=== PATIENT | female | born 1990 | race Two or more races ===

== ENCOUNTER → 2018-01-08 | Outpatient (CLI) | payer SELFPAY ==
--- NOTE | 2018-01-08 15:39 | RADIOLOGY REPORT (SQ) ---
EXAM DESCRIPTION: U/S OB 14+ TRNABD 1GES W/O DOP COMPLETED DATE/TIME: 01/08/2018 3:29 pm REASON FOR STUDY: ENCOUNTER FOR SUPERVISION OF NORMAL , THIRD TRIMESTER Z34.93 ENCNTR FOR SUPRVSN OF NORMAL PREG, UNSP, THIRD TRIMES COMPARISON: None. TECHNIQUE: Static and Dynamic grayscale imaging performed of gravid uterus using transabdominal appr oach. Additional selected color Doppler and spectral images recorded. All stored on PACS. LIMITATIONS: None. FINDINGS: FETUSES SEEN:1 EGA: 34 week 2 day. Calculated using BPD,FL,HC,AC documented on images. No discrepancy with clinical dates. JEANETH: 02/17/2018. EFW: 2,127 grams CRISTIANO: 12.1 cm. PLACENTA: Anterior. GRADE: I PRESENTATION: Cephalic. ANATOMY: HEART RATE: 152 beats per minute. FOUR CHAMBER HEART: Visualized. THREE VESSEL CORD: Yes. CORD INSERTION: Visualized. KIDNEYS AND BLADDER: Visualized. Appear normal. STOMACH: Visualized. Appears normal. SPINE: Normal as visualized. BRAIN AND LATERAL VENTRICLES: Lateral ventricles not seen. Normal brain as visualized. OTHER: No other significant finding. MATERNAL ADNEXA: Maternal ovaries not visualized. CERVICAL LENGTH: 2.8 cm. Closed. OTHER: No other significant finding. IMPRESSION: LIVING INTRAUTERINE . ESTIMATED GESTATIONAL AGE 34 WEEK 2 DAY. NO VISUALIZED ANOMALIES. Trimester of : Third trimester - 28 weeks to delivery. TECHNICAL DOCUMENTATION: JOB ID: [id number] [email or web address]- All Rights Reserved Reading location - IP/workstation name: [email or web address]
== END ==
LOC: RAD 14:56
PROVIDERS: ATTEND Nurse Practitioner
DX: Z34.93 Encounter for supervision of normal pregnancy, unspecified, third trimester (principal)
CPT/HCPCS: 76805

== ENCOUNTER 2018-01-27 12:06 | Outpatient (CLI) | payer MEDICAID ==
[2018-01-27 16:12] LABS: APPEARANCE,URINE SLIGHTLY-CLOUDY; BILIRUBIN,URINE NEGATIVE (NEGATIVE); COLOR,URINE YELLOW; GLUCOSE, URINE NEGATIVE (NEGATIVE); KETONES,URINE NEGATIVE (NEGATIVE); LEUKOCYTE ESTERASE,URINE SMALL (NEGATIVE); NITRITE,URINE NEGATIVE (NEGATIVE); PROTEIN,URINE NEGATIVE (NEGATIVE); URINE SPECIFIC GRAVITY 1.017; UROBILINOGEN,URINE NEGATIVE mg/dL (<2.0)
[2018-01-27 16:52] LABS: URINE AMPHETAMINES SCREEN NEGATIVE; URINE BARBITURATES SCREEN NEGATIVE; URINE BENZODIAZEPINES SCREEN NEGATIVE; URINE COCAINE SCREEN NEGATIVE; URINE MARIJUANA (THC) SCREEN NEGATIVE; URINE METHADONE SCREEN NEGATIVE; URINE PHENCYCLIDINE SCREEN NEGATIVE
== END 2018-01-27 15:04 | disposition home or self-care (01) ==
LOC: LC 12:06
PROVIDERS: ATTEND Physician Assistant
PROC: 4A1HXCZ Monitoring of Products of Conception, Cardiac Rate, External Approach (ICD-10-PCS; principal; 2018-01-27)
DX: O47.03 False labor before 37 completed weeks of gestation, third trimester (principal); Z3A.36 36 weeks gestation of pregnancy
CPT/HCPCS: 59025; 80307; 81001

== ENCOUNTER 2018-01-31 13:24 | Outpatient (CLI) | payer MEDICAID ==
--- NOTE | 2018-01-31 13:27 | Non Stress Test Report ---
Non Stress Test Datetime Report Generated by CPN: 01/31/2018 13:27 DEMOGRAPHIC EGA NST: 36.3 INDICATION Indication for Study: Other Indication for Study (NST) Other: labor check VITAL SIGNS Temperature - NST: 99.0 Pulse - NST: 94 RESP - NST: 16 NBPSYS NST: 116 NBPDIA NST: 71 MONITORING Monitor Explained: Monitor Explained; Test Explained; Patient Verbalized Understanding Time on Monitor: 01/27/2018 13:08 Time off Monitor: 01/27/2018 13:28 NST Duration: 20 NST INTERVENTIONS NST Interventions: PO Hydration Physician Notified NST: Dr. Sanders BABY A: [id number] BABY A Movement : Present Contraction Frequency : irreg FHR Baseline : 135 Accelerations : 15X15 Decelerations : None Variability : Moderate 6-25bpm NST Review: Meets Criteria for Reactive NST NST Review and Verified By : Colby Collins RN NST Results: Reactive NST REPORT Report Trigger: Send Report
--- NOTE | 2018-01-31 14:38 | Non Stress Test Report ---
Non Stress Test Datetime Report Generated by CPN: 01/31/2018 14:37 DEMOGRAPHIC EGA NST: 37.0 INDICATION Indication for Study: Ordered by Provider MONITORING Monitor Explained: Monitor Explained; Test Explained; Patient Verbalized Understanding Time on Monitor: 01/31/2018 13:38 Time off Monitor: 01/31/2018 14:31 NST Duration: 53 NST INTERVENTIONS NST Interventions: PO Hydration; Reposition Patient Physician Notified NST: A. Rodriguez, CNM BABY A Movement : Present Contraction Frequency : 1-5 FHR Baseline : 135 Accelerations : 15X15 Decelerations : None Variability : Moderate 6-25bpm NST Review: Meets Criteria for Reactive NST NST Review and Verified By : STARR Patino Results: Reactive NST REPORT Report Trigger: Send Report
[2018-01-31 14:42] LABS: APPEARANCE,URINE SLIGHTLY-CLOUDY; BILIRUBIN,URINE NEGATIVE (NEGATIVE); COLOR,URINE YELLOW; GLUCOSE, URINE NEGATIVE (NEGATIVE); KETONES,URINE NEGATIVE (NEGATIVE); LEUKOCYTE ESTERASE,URINE TRACE (NEGATIVE); NITRITE,URINE NEGATIVE (NEGATIVE); PROTEIN,URINE NEGATIVE (NEGATIVE); URINE SPECIFIC GRAVITY 1.008; UROBILINOGEN,URINE NEGATIVE mg/dL (<2.0)
[2018-01-31 15:02] LABS: URINE AMPHETAMINES SCREEN NEGATIVE; URINE BARBITURATES SCREEN NEGATIVE; URINE BENZODIAZEPINES SCREEN NEGATIVE; URINE COCAINE SCREEN NEGATIVE; URINE MARIJUANA (THC) SCREEN NEGATIVE; URINE METHADONE SCREEN NEGATIVE; URINE PHENCYCLIDINE SCREEN NEGATIVE
== END 2018-01-31 15:35 | disposition home or self-care (01) ==
LOC: LC 13:24
PROVIDERS: ATTEND Obstetrics & Gynecology
DX: Z34.90 Encounter for supervision of normal pregnancy, unspecified, unspecified trimester (principal)
CPT/HCPCS: 59025; 80307; 81001; 84112

== ENCOUNTER 2018-02-08 06:20 | Inpatient (IN) | payer MEDICAID ==
[2018-02-08] MEDS ORDERED: OXYTOCIN 10 UNIT/ML VIAL ONE (06:51)
[2018-02-08] MEDS ORDERED: MISOPROSTOL 0.2 MG TABLET ONE ×2 (06:52→07:06)
[2018-02-08] MEDS ORDERED: LIDOCAINE 1% INJ-PF (10 MG/ML) 30 ML SDV ONE ×2 (06:52→07:06)
[2018-02-08] MEDS ORDERED: OXYTOCIN/NORMAL SALINE 0 UNIT/0 ML RTUINJ ONE (06:52)
[2018-02-08] MEDS ORDERED: RINGERS SOLUTION,LACTATED 1,000 ML IV ONE (06:55)
[2018-02-08] MEDS ORDERED: RINGERS SOLUTION,LACTATED 1,000 ML IV PRN (06:55)
[2018-02-08] MEDS ORDERED: OXYTOCIN/NORMAL SALINE 20 UNIT/1,000 ML RTUINJ ONE (07:06)
[2018-02-08 07:46] LABS: APPEARANCE,URINE SLIGHTLY-CLOUDY; BILIRUBIN,URINE NEGATIVE (NEGATIVE); COLOR,URINE YELLOW; GLUCOSE, URINE NEGATIVE (NEGATIVE); KETONES,URINE NEGATIVE (NEGATIVE); LEUKOCYTE ESTERASE,URINE TRACE (NEGATIVE); NITRITE,URINE NEGATIVE (NEGATIVE); PROTEIN,URINE NEGATIVE (NEGATIVE); URINE SPECIFIC GRAVITY 1.024; UROBILINOGEN,URINE NEGATIVE mg/dL (<2.0)
[2018-02-08 07:48] LABS: ABSOLUTE LYMPHOCYTES (AUTO) 1.5 10^3/uL (0.5-4.7); ABSOLUTE MONOCYTES (AUTO) 1.1 10^3/uL (0.1-1.4); ABSOLUTE NEUT (AUTO) 13.1 10^3/uL (1.7-8.2); BASOPHILS % (AUTO) 0.2 % (0-2); EOSINOPHILS % (AUTO) 0.1 % (0-6); HEMATOCRIT 35.4 % (36.0-47.0); HEMOGLOBIN 12.2 g/dL (12.0-15.5); LYMPHOCYTES % (AUTO) 9.8 % (13-45); MEAN CORPUSCULAR HEMOGLOBIN 30.3 pg (27.0-33.4); MEAN CORPUSCULAR HGB CONC 34.4 g/dL (32.0-36.0); MEAN CORPUSCULAR VOLUME 88 fl (80-97); MONOCYTES % (AUTO) 7.1 % (3-13); PLATELET COUNT 230 10^3/uL (150-450); RED BLOOD COUNT 4.02 10^6/uL (3.72-5.28); RED CELL DISTRIBUTION WIDTH 13.3 % (11.5-14.0); SEGMENTED NEUTROPHILS % (AUTO) 82.8 % (42-78); TOTAL CELLS COUNTED % (AUTO) 100 %; WHITE BLOOD COUNT 15.8 10^3/uL (4.0-10.5)
[2018-02-08 07:55] LABS: URINE AMPHETAMINES SCREEN NEGATIVE; URINE BARBITURATES SCREEN NEGATIVE; URINE BENZODIAZEPINES SCREEN NEGATIVE; URINE COCAINE SCREEN NEGATIVE; URINE MARIJUANA (THC) SCREEN NEGATIVE; URINE METHADONE SCREEN NEGATIVE; URINE PHENCYCLIDINE SCREEN NEGATIVE
[2018-02-08] MEDS ORDERED: EPHEDRINE SULFATE INJ 50 MG/1 ML AMPULE ONE (08:12)
[2018-02-08] MEDS ORDERED: BUPIVACAINE HCL 0.25 % INJ/PF (2.5 MG/1 ML) 30 ML VIAL ONE (08:14)
[2018-02-08] MEDS ORDERED: FENTANYL/BUPIVACAINE/NS/PF 300 MCG/150 ML RTUINJ EPI ONE (08:14)
[2018-02-08] MEDS ORDERED: BUPIVACAINE HCL 0.5 % INJ/PF 30 ML SDV ONE (08:14)
--- NOTE | 2018-02-08 09:47 | Admission Physical ---
Datetime Report Generated by CPN: 02/08/2018 09:46 CURRENT ADMISSION Hx Assessment: The History has been Reviewed and is Current Chief Complaint: Uterine Contractions Indication for Induction: Not Applicable Admit Impression : Term, Intrauterine ; No Active Labor Admit Plan: Admit to Unit; Initiate Labor Protocol ALLERGIES Medication Allergies: No Medication Allergies: No Known Allergies (02/08/2018) Latex: No Latex Allergies Food Allergies: none Environmental Allergies: none OBSTETRICAL HISTORY EDC: 02/21/2018 00:00 : 1 Para: 0 Term: 0 : 0 SAB: 0 IAB: 0 Ectopic: 0 Livin Cesareans: 0 VBACs: 0 Multiple Births: 0 Gestational Diabetes: No Rh Sensitization: No Incompetent Cervix: No MELANIE: No Infertility: No ART Treatment: No Uterine Anomaly: No IUGR: No Hx Previous C/S: No Macrosomia: No Hx Loss/Stillborn: No PIH: No Hx : No Placenta Previa/Abruption: No Depression/PP Depression: No PTL/PROM: No Post Hemorrhage: No Current Procedures: Ultrasound Obstetrical History Comments: SEE RECORDS Alcohol: No Marijuana : No Cocaine: No Other Illicit Drugs: No Cigarettes: Never Smoker. [id number] MEDICAL HISTORY Diabetes: No Blood Transfusion: No Pulmonary Disease (Asthma, TB): No Breast Disease: No Hypertension: No Intake Rn Surgery: No Heart Disease: No Hosp/Surgery: No Autoimmune Disorder: No Anesthetic Complications: No Kidney Disease: No Abnormal Pap Smear: No Neuro/Epilepsy: No Psychiatric Disorders: No Other Medical Diseases: No Hepatitis/Liver Disease: No Significant Family History: No Varicosities/Phlebitis: No Trauma/Violence : No Thyroid Dysfunction: No Medical History Comments: tonsillectomy INFECTIOUS HISTORY Gonorrhea: No Genital Herpes: No Chlamydia: No Tuberculosis: No Syphilis: No Hepatitis: No HIV/AIDS Exposure: No Rash or Viral Illness: No HPV: No PHYSICAL EXAM General: Normal HEENT: Deferred Neurologic: Normal Thyroid: Normal Heart: Normal Lungs: Normal Breast: Deferred Back: Normal Abdomen: Normal Genitourinary Exam: Normal Extremities: Normal DTRs: Normal Pelvic Type: Adequate Physical Exam Comments: GBS neg Pt does not speak Englisg, English EDC: 02-21-18 B+, 1 hour = 74 G1 Vital Signs: Reviewed FETUS A EGA: 38.1 Monitoring: External US Variability: Moderate 6-25bpm Accelerations: 15X15 Decelerations: None FHR Category: Category I Admit Comment: Admitted to LD in active lbor, Cat 1 strip, uc's q [address] Hoffmn admitted pt Plan: epidural, PLANS FOR LABOR AND DELIVERY Labor and Delivery: Other, Specify Pain Management: Epidural Feeding Preference: Breast Benefit of Breast Feed Discussed: Yes Circumcision: No INFORMED CONSENT Assignment: Alexus Claire MD Signature: with User ID: [email or web address] : with User ID: [email or web address]
--- NOTE | 2018-02-08 11:37 | L&D Progress Notes ---
PROGRESS NOTES Datetime Report Generated by CPN: 02/08/2018 11:37 PROGRESS NOTE Comment: VE, complete, -1, bulging BOW, AROM clear fluid, does not appear in any pain, Cat 1 strip, uc's q 2-3 min will allow pt to labor down before starting to push Cat 1 strip accel with scalp stim LAST VAGINAL EXAM-NURSING Dilitation: 9.0 Dilitation: 6.0 Dilitation: 3.5 Dilitation: 3.5 Dilitation: 2.5 Dilitation: 2.5 Effacement: 90 Effacement: 75 Effacement: 60 Effacement: 60 Effacement: 60 Effacement: 60 Station: -1 Station: -2 Station: -2 Station: -2 Station: -2 Station: -2 SIGNATURE SIGNATURE: [id number];[id number];[id number] SIGNATURE: [id number];[id number] SIGNATURE: [id number] SIGNATURE: [id number] Assignment: Kajal Bhandari MD Signature: with User ID: [email or web address] : with User ID: [email or web address]
[2018-02-08] MEDS ORDERED: OXYTOCIN/NORMAL SALINE 20 UNIT/1,000 ML RTUINJ IV PRN (13:13)
[2018-02-08] MEDS ORDERED: DIPH/PERTUSS(ACELL)/TETANUS VAC/PF 0.5 ML SYR (>=10YO) IM PRN (13:13)
[2018-02-08] MEDS ORDERED: MISOPROSTOL 0.2 MG TABLET PR PRN (13:13)
[2018-02-08] MEDS ORDERED: PROMETHAZINE HCL INJ 25 MG/1 ML VIAL IV PRN (13:13)
[2018-02-08] MEDS ORDERED: NA PHOS,M-B/NA PHOS,DI-BA (ADULT) 133 ML ENEMA PR PRN (13:13)
[2018-02-08] MEDS ORDERED: BENZOCAINE/MENTHOL AEROSOL SPRAY 56 ML TOP PRN (13:13)
[2018-02-08] MEDS ORDERED: PSEUDOEPHEDRINE HCL 30 MG TABLET PO PRN (13:13)
[2018-02-08] MEDS ORDERED: MEASLES,MUMPS&RUBELLA VACC/PF 0.5 ML VIAL SUBCUT PRN (13:13)
[2018-02-08] MEDS ORDERED: ACETAMINOPHEN WITH CODEINE #3 TABLET PO PRN ×2 (13:13)
[2018-02-08] MEDS ORDERED: PROMETHAZINE HCL 25 MG SUPP.RECT PR PRN (13:13)
[2018-02-08] MEDS ORDERED: ZOLPIDEM TARTRATE 5 MG TABLET PO PRN (13:13)
[2018-02-08] MEDS ORDERED: MAGNESIUM HYDROXIDE SUSP 30 ML UDCUP PO PRN (13:13)
[2018-02-08] MEDS ORDERED: DIPHENHYDRAMINE HCL 25 MG CAPSULE PO PRN (13:13)
[2018-02-08] MEDS ORDERED: PROMETHAZINE HCL 25 MG TABLET PO PRN (13:13)
[2018-02-08] MEDS ORDERED: GLYCERIN/WITCH HAZEL LEAF 1 EACH MED..PAD TP PRN (13:13)
[2018-02-08] MEDS ORDERED: DIBUCAINE 1% OINTMENT 28 GM TP PRN (13:13)
[2018-02-08] MEDS ORDERED: ACETAMINOPHEN 650 MG SUPP.RECT PR PRN (13:13)
--- NOTE | 2018-02-08 15:07 | Delivery Summary ---
Del Sum A-C Datetime Report Generated by CPN: 02/08/2018 15:07 DELIVERY PERSONNEL DELIVERY PERSONNEL: [id number] Delivery Doctor:: Beena Almanzar MD Nurse Grocery Caddy Certified:: Farrah Singleton CNM Labor and Delivery Nurse:: Anisha Velarde RN Labor and Delivery Nurse:: Acacia Jimenez RN Nursery Nurse:: Nathaly Tolbert RN Bisque Kiln Drawer/HISTOLOGIST TECHNOLOGIST: Amalia Holguin CNA II Additional Personnel: : Juana Palmer RN MATERNAL INFORMATION Delivery Anesthesia: Epidural Medications After Delivery: Pitocin Bolus-Please Comment; Pitocin Drip 20 Units/1000ml NSS; Cytotec 600mcg Per Rectum/Vagina Maternal Complications: None Provider Comments: Cat 1 strip until 1217, late deceleration, then veronica, 02 started, increase IVF, positioned, left side, right side, FSE applied. Knee chest, paged, in OR, Dr. Almanzar paged and on her way @ 1226, placed in position for delivery, Dr. Almanzar arrived, Kiwi used x 3 with descent of baby, pushing, baby delivered from OA to IRENE, placed on mothers abd, nursery in attendance, baby crying, cord clamped and cut after 2 minutes, spont delivery of grossly nl intact placenta, 3 VC, lacerations repaired without difficulty, FFFM, cytotec 600 mcg via rectum, IV Pitocin, baby and mom remain in recovery in stable condition (Annotations: Data stored by CPN on behalf of user) LABOR SUMMARY EDC: 02/21/2018 00:00 No. Babies in Womb: 1 Attempted: No Labor Anesthesia: Epidural LABOR INFORMATION Reason for Induction: Not Applicable Onset of Labor: 02/07/2018 21:00 Complete Dilatation: 02/08/2018 11:31 Oxytocin: N/A Group B Beta Strep: NEGATIVE Antibiotics # of Doses: 0 Steroids Given: None Reason Steroids Not Administered: Not Applicable MEMBRANES Membranes Rupture Method: Artificial Rupture of Membranes: 02/08/2018 11:31 Length of Rupture (hr): 1.18 Amniotic Fluid Color: Clear Amniotic Fluid Amount: Moderate Amniotic Fluid Odor: None STAGES OF LABOR Stage 1 hr: 14 Stage 1 min: 31 Stage 2 hr: 1 Stage 2 min: 11 Stage 3 hr: 0 Stage 3 min: 5 Total Time in Labor hr: 15 Total Time in Labor min: 47 VAGINAL DELIVERY Episiotomy: None Laceration #1: Vaginal Laceration Extension #1: First Degree Other Laceration: LT LABIAL LAC Laceration Repair: Yes Laceration Repair Note: 2-0 chromic, left labia and vaginal Sponge Count Correct: N/A Sharps Count Correct: N/A BABY A INFORMATION Infant Delivery Date/Time: 02/08/2018 12:42 Method of Delivery: Vaginal Born in Route : No : N/A Forceps: N/A Vacuum Extraction: Successful Shoulder Dystocia : No PRESENTATION/POSITION BABY A Presentation: Cephalic Cephalic Presentation: Vertex Vertex Position: Left Occipital Anterior Breech Presentation: N/A PLACENTA INFORMATION BABY A Placenta Delivery Time : 02/08/2018 12:47 Placenta Method of Delivery: Spontaneous Placenta Status: Delivered SCORES BABY A Heart Rate 1 min: >100 bpm Resp Effort 1 min: Good Cry Reflex Irritability 1 min: Cough or Sneeze or Pulls Away Muscle Tone 1 min: Active Motion Color 1 min: Blue/Pale Resuscitation Effort 1 min: Tactile Stimulation SCORE 1 MIN: 8 Heart Rate 5 min: >100 bpm Resp Effort 5 min: Good Cry Reflex Irritability 5 min: Cough or Sneeze or Pulls Away Muscle Tone 5 min: Active Motion Color 5 min: Blue/Pale Resuscitation Effort 5 min: Tactile Stimulation SCORE 5 MIN: 8 INFANT INFORMATION BABY A Gestational Age at Delivery: 38.1 Gestational Status: Early Term- 37- 38.6 Weeks Outcome : Liveborn Condition : Stable Infant Sex: Male IDENTIFICATION BABY A Infant Verification Date/Time: 02/08/2018 13:27 ID Band Number: [id number] Mother's Name Verified: Yes RN Verifying Infant: Hailey Jimenez, RN/ C. Pablo, RN CORD INFORMATION BABY A No. Cord Vessels: 3 Nuchal Cord : N/A Cord Blood Taken: Yes-For Storage (Mom's Blood type +) Suction: None ASSESSMENT BABY A Complications: Extended Bradycardia; Multiple Variable Decels Physical Findings at Delivery: Within Normal Limits Infant Respirations: Appears Normal Skin to Skin: Yes Locket Maker/ALS Called : No Care By: Praveen TOLBERT RN Transferred To: Remains with Mother BABY B INFORMATION : N/A
[2018-02-08] MEDS: IBUPROFEN 800 MG TABLET PO SCH ×2 (17:08→22:04)
[2018-02-08] MEDS: FERROUS SULFATE 325 MG TABLET PO SCH (18:28)
[2018-02-08] MEDS: DOCUSATE SODIUM 100 MG CAPSULE PO SCH (18:28)
[2018-02-08] MEDS ORDERED: FAMOTIDINE 20 MG TABLET PO SCH (22:00)
[2018-02-09] MEDS: IBUPROFEN 800 MG TABLET PO SCH ×3 (05:32→21:56)
[2018-02-09 07:10] LABS: HEMATOCRIT 32.7 % (36.0-47.0); HEMOGLOBIN 11.2 g/dL (12.0-15.5); MEAN CORPUSCULAR HEMOGLOBIN 30.2 pg (27.0-33.4); MEAN CORPUSCULAR HGB CONC 34.2 g/dL (32.0-36.0); MEAN CORPUSCULAR VOLUME 89 fl (80-97); PLATELET COUNT 180 10^3/uL (150-450); RED BLOOD COUNT 3.69 10^6/uL (3.72-5.28); RED CELL DISTRIBUTION WIDTH 13.3 % (11.5-14.0); WHITE BLOOD COUNT 14.2 10^3/uL (4.0-10.5)
[2018-02-09] MEDS: PRENATAL VITAMIN W DHA CAPSULE PO SCH (09:33)
[2018-02-09] MEDS: DOCUSATE SODIUM 100 MG CAPSULE PO SCH ×2 (09:34→18:05)
[2018-02-09] MEDS: FERROUS SULFATE 325 MG TABLET PO SCH ×2 (09:34→18:05)
[2018-02-09] MEDS ORDERED: SENNOSIDES/DOCUSATE 8.6-50 MG 1 EACH TABLET PO SCH (10:00)
[2018-02-10] MEDS: IBUPROFEN 800 MG TABLET PO SCH ×2 (05:23→13:25)
--- NOTE | 2018-02-10 08:59 | PDOC DISCHARGE SUMMARY ---
Final Diagnosis Discharge Date: 02/10/18 - Final Diagnosis (1) Active labor at term Is this a current diagnosis for this admission?: Yes (2) bradycardia, delivered, current hospitalization Is this a current diagnosis for this admission?: Yes (3) Vacuum extractor delivery, delivered Is this a current diagnosis for this admission?: Yes Discharge Data - Discharge Medication Home Medications: [id number]/Iron Fum,Ps/Folic/Dha [Provida Dha Capsule] 1 tab PO DAILY 01/27/18 Reason(s) for Admission: Onset of Labor Procedures: NST Intrapartum Procedure(s): Spontaneous Vaginal Delivery Complication(s): Laceration-Vaginal, Laceration-Labial Laceration-Degree: 1st - Diagnosis Test Laboratory: Temp Pulse Resp BP Pulse Ox 98.5 F 69 15 96/57 L 98 02/09/18 08:38 02/09/18 08:38 02/09/18 08:38 02/09/18 08:38 02/09/18 08:38 02/08/18 02/08/18 02/09/18 06:28 07:33 06:54 RBC 4.02 3.69 L Hgb 12.2 11.2 L Hct 35.4 L 32.7 L Urine Opiates Screen NEGATIVE - Discharge information/Instructions Discharge Activity: Balance Activity w/Rest, Pelvic Rest Discharge Diet: Regular Disposition: HOME, SELF-CARE Follow up with: [facility] in: 3, Weeks
--- NOTE | 2018-02-10 08:59 | PDOC PROGRESS REPORT ---
Subjective-OB Progress Note for:: 02/09/18 Subjective: Pt doing well, no concerns. She reports light bleeding, reg diet and voiding well. Physical Exam (OB) Vital Signs: Temp Pulse Resp BP Pulse Ox 98.0 F 75 17 105/57 L 99 02/09/18 20:40 02/09/18 20:40 02/09/18 20:40 02/09/18 20:40 02/09/18 20:40 Intake & Output 02/09/18 02/10/18 02/11/18 06:59 06:59 06:59 Intake Total 240 Balance 240 Weight 90.6 kg - PIH/Pre-Eclampsia DTR's: 2 + Clonus: Negative Headache: Absent Epigastric Pain: No Visual Changes: No - Lochia Lochia Amount: Scant < 10 ml Lochia Color: Rubra/Red - Abdomen Description: Soft Hernia Present: No Fundal Description: Firm, Midline Fundal Height: u/u - u/2 Objective-Diagnostic Laboratory: 02/09/18 06:54 Assessment and Plan(PN) - Assessment and Plan (1) Active labor at term Is this a current diagnosis for this admission?: Yes (2) bradycardia, delivered, current hospitalization Is this a current diagnosis for this admission?: Yes (3) Vacuum extractor delivery, delivered Is this a current diagnosis for this admission?: Yes
[2018-02-10] MEDS: PRENATAL VITAMIN W DHA CAPSULE PO SCH (10:43)
[2018-02-10] MEDS: DOCUSATE SODIUM 100 MG CAPSULE PO SCH (10:43)
[2018-02-10] MEDS: FERROUS SULFATE 325 MG TABLET PO SCH (10:43)
[2018-02-10 13:13] VITALS: BP 99/51
== END 2018-02-10 17:30 | disposition home or self-care (01) | DRG 807 ==
LOC: LC 06:20 → LR 06:52 → 2S 15:33
PROVIDERS: ADMIT Student in an Organized Health Care Education/Training Program; ATTEND Student in an Organized Health Care Education/Training Program
PROC: 10D07Z6 Extraction of Products of Conception, Vacuum, Via Natural or Artificial Opening (ICD-10-PCS; principal; 2018-02-08)
PROC: 0UQMXZZ Repair Vulva, External Approach (ICD-10-PCS; 2018-02-08)
PROC: 10907ZC Drainage of Amniotic Fluid, Therapeutic from Products of Conception, Via Natural or Artificial Opening (ICD-10-PCS; 2018-02-08)
PROC: 4A1HXCZ Monitoring of Products of Conception, Cardiac Rate, External Approach (ICD-10-PCS; 2018-02-08)
DX: O76 Abnormality in fetal heart rate and rhythm complicating labor and delivery (principal); Z37.0 Single live birth; O70.0 First degree perineal laceration during delivery; Z3A.38 38 weeks gestation of pregnancy
CPT/HCPCS: 36415; 80307; 81001; 85025; 85027; 86592; 86850; 86900; 86901; J2590; J3010; J3490